=== PATIENT | male | born 1960 | race Caucasian/White ===

== ENCOUNTER 2021-11-17 06:35 | Day surgery (SDC) | payer BC ==
[2021-11-13 11:23] VITALS: BMI 31.1
[2021-11-17] MEDS ORDERED: SUGAMMADEX SODIUM 200 MG/2 ML VIAL ONE (06:37)
[2021-11-17] MEDS ORDERED: Mupirocin 2% Ointment 22 GM Tube ONE (08:26)
[2021-11-17] MEDS ORDERED: EPINEPHrine 1 MG/ML AMP ONE (08:26)
== END 2021-11-17 10:30 | disposition home or self-care (01) ==
LOC: CSHSDC 06:35
PROVIDERS: ATTEND Otolaryngology Plastic Surgery within the Head & Neck
PROC: 0CDT8ZZ Extraction of Right Vocal Cord, Via Natural or Artificial Opening Endoscopic (ICD-10-PCS; principal; 2021-11-17)
DX: R49.0 Dysphonia (principal); J38.7 Other diseases of larynx; J38.01 Paralysis of vocal cords and larynx, unilateral; I10 Essential (primary) hypertension; E11.9 Type 2 diabetes mellitus without complications; E78.00 Pure hypercholesterolemia, unspecified; K21.9 Gastro-esophageal reflux disease without esophagitis; Z79.84 Long term (current) use of oral hypoglycemic drugs; Z79.899 Other long term (current) drug therapy; Z88.8 Allergy status to other drugs, medicaments and biological substances
CPT/HCPCS: 70491; 88305; 88331; J0171